=== PATIENT | male | born 1995 | race Caucasian/White ===

== ENCOUNTER 2019-09-23 22:49 | Emergency (ER) | payer BC ==
[~2019-09-23] VITALS: Ht 185.4 cm; Wt 72.6 kg
[2019-09-23 23:15] VITALS: BP 176/90
[2019-09-24 00:02] LABS: INFLUENZA A PATIENT NEGATIVE (NEGATIVE)
[2019-09-24 00:03] LABS: INFLUENZA B PATIENT POSITIVE (NEGATIVE)
[2019-09-24] MEDS ORDERED: OSEL75CA PO (00:12)
--- NOTE | 2019-09-24 00:13 | PHYS DOC ---
Past Medical History Past Medical History: No Pertinent History (AILIN KERR APRN) Past Surgical History: Other Additional Past Surgical Histo: RIGHT TESTICLE REMOVED (AILIN KERR APRN) Alcohol Use: Occasionally Drug Use: None (AILIN KERR APRN) Attending Signature I have participated in the care of this patient and I have reviewed and agree with all pertinent clinical information above including history, exam, and recommendations. (JAYY SPRAGUE MD) Adult General Chief Complaint Chief Complaint: SORE THROAT HPI HPI Patient is a 23 year old Male who presents with fever, chills, cough, sore throat for the last 4 days. Denies nausea, vomiting, diarrhea, syncope, headache, dizziness, chest pain, shortness of air, abdominal pain. Patient states she's been taking NyQuil and some Tylenol to help with his symptoms. He states it does help with his symptoms. (AILIN KERR APRN) Review of Systems Review of Systems Constitutional: fever or chills [] HENT: Denies nasal congestion. +sore throat [] Respiratory: cough or denies shortness of breath [] All other systems were reviewed and found to be within normal limits, except as documented in this note. (AILIN KERR APRN) Physical Exam Physical Exam Constitutional: Well developed, well nourished, no acute distress, non-toxic appearance. [] HENT: Normocephalic, atraumatic, bilateral external ears normal, oropharynx moist, no oral exudates, nose normal. [] Eyes: PERRLA, EOMI, conjunctiva normal, no discharge. [] Neck: Normal range of motion, no tenderness, supple, no stridor. [] Cardiovascular:Heart rate regular rhythm, no murmur [] Lungs & Thorax: Bilateral breath sounds clear to auscultation [] Abdomen: Bowel sounds normal, soft, no tenderness, no masses, no pulsatile masses. [] Skin: Warm, dry, no erythema, no rash. [] Back: No tenderness, no CVA tenderness. [] Extremities: No tenderness, no cyanosis, no clubbing, ROM intact, no edema. [] Neurologic: Alert and oriented X 3, normal motor function, normal sensory function, no focal deficits noted. [] Psychologic: Affect normal, judgement normal, mood normal. Normal Physical Exam [] (AILIN KERR APRN) Current Patient Data Vital Signs Vital Signs Date Time Temp Pulse Resp B/P (MAP) Pulse Ox O2 Delivery O2 Flow Rate FiO2 09/23/19 23:15 99.0 103 12 176/90 (118) 99 Room Air 99.0 (JAYY SPRAGUE MD) Lab Values Laboratory Tests Test 09/23/19 23:15 Influenza Type A Antigen Negative (NEGATIVE) Influenza Type B Antigen Positive (NEGATIVE) (JAYY SPRAGUE MD) EKG EKG [] (AILIN KERR APRN) Radiology/Procedures Radiology/Procedures [] (AILIN KERR APRN) Course & Med Decision Making Course & Med Decision Making Patient states his throat hurts when he coughs. Lungs are clear to patient all lobes. Vital signs are within normal limits. Alert and oriented. Speaks in full clear senses. Ambulatory with a steady gait. Patient states he is eating and drinking appropriately. Abdomen soft and nontender. Skin pink warm and dry. Throat is reddened but there is no exudates or swelling. Influenza B positive. (AILIN KERR APRN) Dragon Disclaimer Dragon Disclaimer This electronic medical record was generated, in whole or in part, using a voice recognition dictation system. (AILIN KERR APRN) Departure Departure Impression: Primary Impression: Influenza B Disposition: 01 HOME, SELF-CARE Condition: STABLE Referrals: UNKNOWN PCP NAME (PCP) Patient Instructions: Influenza, Adult Additional Instructions: Continue taking the NyQuil and any Tylenol or ibuprofen to help with fever. Can also take DayQuil. Take medications with food. Scripts Oseltamivir Phosphate (TAMIFLU) 75 Mg Capsule 1 CAP PO BID, #10 CAP Prov: AILIN KERR APRN 09/24/19 AILIN KERR APRN Sep 24, 2019 00:13 JAYY SPRAGUE MD Sep 24, 2019 02:59
== END 2019-09-24 00:17 | disposition home or self-care (01) ==
LOC: ER 22:49
DX: J10.1 Influenza due to other identified influenza virus with other respiratory manifestations (principal)
CPT/HCPCS: 87804; 99284